=== PATIENT | male | born 1970 | race Two or more races ===

== ENCOUNTER 2019-02-10 13:12 | Inpatient (IN) | payer OTHER ==
[~2019-02-10] VITALS: Ht 190.5 cm; Wt 113.4 kg
--- NOTE | 2019-02-10 13:20 | NUR ---
SE RECIBE PTE EN AMBULANCIA LETARGICO ACOMPANADO POR CAUSEY ALVAREZ EL CUAL REFIERE QUE CAUSEY ALVAREZ SE, ESTABA BANANDO EN EL MAR DETRAS DEL HOTEL LA NATE ,TRAGO AGUA,PTE LLEGO CON S/V ,RESPONDE UN POCO A COMANDO.
--- NOTE | 2019-02-10 13:27 | NUR ---
PACIENTE ALERTA Y ORIENTADO POR ARABELLA ESFERAS QUIEN LLEGA EN AMBULANCIA, SE CONECTA A MONITOR CARDIACO,. SE ORIENTA SOBRE PROCEDIMIENTO, REFIERE ENTENDER. SE EXTRAE MUESTRAS DE LABORATORIO CON MEDIDAS ASEPTICAS Y SE ADMINISTRA MEDICAMENTOS SARI ORDEN MEDICA. MS. CHAUDHRYORIO REALIZA ABG'S Y COLOCA NON-REBREATHING MASK.
--- NOTE | 2019-02-10 13:32 | NUR ---
PT JALIL MORALES [facility].
--- NOTE | 2019-02-10 15:22 | NUR ---
SE RECIBE PACIENTE ALERTA Y ORIENTADO X3 EN CAMA CONECTADO A TELEMETRIA Y OXIMETRIA. PACIENTE MUESTRA BUEN PATRON RESPIRATORIO Y RESPIRA AL MOMENTO USANDO NON REBREATHING MASK. PACIENTE SE MUESTRA TRANQUILO AL MOMENTO Y SE LE ORIENTA SOBRE EL PROCESO DE OBSERVACION CRITICO. PACIENTE VERBALIZA NO QUERER MORALES.
[2019-02-14] MEDS ORDERED: CLEOCIN HCL300 MG PO (10:56)
[2019-02-14] MEDS ORDERED: LEVAQUIN750 MG PO (10:56)
[2019-02-14] MEDS ORDERED: PROAIR HFA8.5 GM IH (14:56)
== END 2019-02-14 16:11 | disposition home or self-care (01) | DRG 922 ==
LOC: ER 13:12 → ICU-2 23:15 → MEDJ 02-12 17:29
PROVIDERS: ADMIT Internal Medicine
PROC: BB24ZZZ Computerized Tomography (CT Scan) of Bilateral Lungs (ICD-10-PCS; principal; 2019-02-10)
PROC: 3E0F7GC Introduction of Other Therapeutic Substance into Respiratory Tract, Via Natural or Artificial Opening (ICD-10-PCS; 2019-02-10)
PROC: 4A033R1 Measurement of Arterial Saturation, Peripheral, Percutaneous Approach (ICD-10-PCS; 2019-02-10)
DX: T75.1XXA Unspecified effects of drowning and nonfatal submersion, initial encounter (principal); J18.1 Lobar pneumonia, unspecified organism; J98.11 Atelectasis; D72.828 Other elevated white blood cell count; W69.XXXA Accidental drowning and submersion while in natural water, initial encounter; Y93.11 Activity, swimming; Y92.832 Beach as the place of occurrence of the external cause; Y99.8 Other external cause status